=== PATIENT | male | born 1930 | race Caucasian/White ===

== ENCOUNTER 2016-11-22 07:12 | Emergency (ER) | payer MEDICARE, OTHER ==
[~2016-11-22] VITALS: Ht 172.7 cm; Wt 97.5 kg
[2016-11-22 07:38] LABS: BASOPHILS # (AUTO) 0.1 K/uL (0.0-0.2); BASOPHILS % (AUTO) 1.3 % (0.0-2.0); EOSINOPHILS # (AUTO) 0.3 K/uL (0.0-0.7); EOSINOPHILS % (AUTO) 4.4 % (0.0-7.0); HEMATOCRIT 42.6 % (40.0-50.0); HEMOGLOBIN 13.6 g/dL (14.0-18.0); LYMPHOCYTES # (AUTO) 1.5 K/uL (0.8-4.8); LYMPHOCYTES % (AUTO) 24.2 % (20.5-51.5); MEAN CORPUSCULAR HEMOGLOBIN 28.2 uug (27.0-31.0); MEAN CORPUSCULAR HGB CONC 32 g/dL (32.0-37.0); MEAN CORPUSCULAR VOLUME 88.4 fL (82.0-92.0); MONOCYTES # (AUTO) 0.5 K/uL (0.1-1.30); MONOCYTES % (AUTO) 7.9 % (0.0-11.0); NEUTROPHILS % (AUTO) 62.2 % (38.5-71.5); PLATELET COUNT (AUTO) 125 K/uL (150-450); RED BLOOD CELL COUNT(AUTO) 4.82 MIL/uL (4.70-6.10); WHITE BLOOD COUNT (AUTO) 6.4 K/uL (4.0-11.2)
[2016-11-22 07:42] LABS: CALCIUM 8.1 mg/dL (8.5-10.1); CREATININE 0.8 mg/dL (0.6-1.3)
--- NOTE | 2016-11-22 07:44 | NUR ---
PT IS IN ROOM #1B. DR KING EVALUATED THE PT.
[2016-11-22] MEDS ORDERED: ASPIRIN 81 MG TAB.CHEW PO ONE (07:45)
[2016-11-22 07:48] LABS: ALBUMIN 3.3 g/dL (3.4-5.0); BILIRUBIN,TOTAL 0.5 mg/dL (0.2-1.0)
[2016-11-22] MEDS ORDERED: VITAMIN E PO (07:52)
[2016-11-22] MEDS ORDERED: MULT-1169 PO (07:52)
[2016-11-22] MEDS ORDERED: LISI-607 PO (07:52)
[2016-11-22] MEDS ORDERED: ATOR80TA PO (07:52)
[2016-11-22] MEDS ORDERED: ASCO500C16 PO (07:52)
[2016-11-22] MEDS ORDERED: ASPI81TA31 PO (07:52)
[2016-11-22] MEDS ORDERED: NIFE10CA2 PO (07:52)
[2016-11-22] MEDS ORDERED: ASPIRIN 81 MG TAB.CHEW ONE (07:54)
[2016-11-22 08:16] LABS: NEUTROPHILS % (MANUAL) 58 % (42-75)
[2016-11-22 08:17] LABS: BAND % (MANUAL) 5 % (0-10); EOSINOPHILS % (MANUAL) 2 % (0-8); LYMPHOCYTES % (MANUAL) 27 % (20-40); MONOCYTES % (MANUAL) 3 % (2-10); PLATELET ESTIMATE DECREASED; REACTIVE LYMPHOCYTES 5 % (0-0)
--- NOTE | 2016-11-22 11:03 | NUR ---
PT WAS D/C TO HOME. D/C INSTRUCTIONS GIVEN TO THE PT BY DR KING.
[2016-11-22 11:06] VITALS: BP 145/76
[2016-11-22 11:27] LABS: CREATINE KINASE MB 1.1 ng/mL (0-5.0)
== END 2016-11-22 11:07 | disposition home or self-care (01) ==
LOC: ER 07:12
DX: R07.9 Chest pain, unspecified (principal); R00.2 Palpitations; Z88.6 Allergy status to analgesic agent; Z85.72 Personal history of non-Hodgkin lymphomas; Z79.82 Long term (current) use of aspirin
CPT/HCPCS: 36415; 71010; 80053; 82550; 82553; 83880; 84484 ×2; 85025; 85610; 93005; 99285; A4663; J7030; 70030-TC

== ENCOUNTER 2020-01-27 18:00 | Emergency (ER) | payer MEDICARE, OTHER ==
[~2020-01-27] VITALS: Ht 182.9 cm; Wt 104.3 kg
[~2020-01-27 18:00] MED LIST: ASCO500C16 PO; ASPI81TA31 PO; ATOR80TA PO; LISI-607 PO; MULT-1169 PO; NIFE10CA2 PO; VITAMIN E PO
[2020-01-27] MEDS ORDERED: SPIR25TA6 PO (18:17)
[2020-01-27] MEDS ORDERED: FAMO20TA8 PO (18:17)
[2020-01-27] MEDS ORDERED: ATOR20TA PO (18:17)
[2020-01-27] MEDS ORDERED: APIX5TAB PO (18:17)
[2020-01-27] MEDS ORDERED: CYAN-51 PO (18:17)
[2020-01-27 18:24] LABS: BASOPHILS % (AUTO) 0.2 % (0.0-2.0); EOSINOPHILS % (AUTO) 0.1 % (0.0-7.0); HEMATOCRIT 42.5 % (36.7-47.1); HEMOGLOBIN 13.9 g/dL (12.5-16.3); LYMPHOCYTES % (AUTO) 9.7 % (20.5-51.5); MEAN CORPUSCULAR HGB CONC 33 g/dL (32.5-36.3); MEAN CORPUSCULAR VOLUME 100.9 fL (73.0-96.2); MONOCYTES # (AUTO) 0.5 K/uL (2.0-10.0); MONOCYTES % (AUTO) 5.4 % (0.0-11.0); NEUTROPHILS # (AUTO) 8.3 K/uL (1.8-8.9); NEUTROPHILS % (AUTO) 84.6 % (38.5-71.5); PLATELET COUNT (AUTO) 252 K/uL (152-348); RED BLOOD CELL COUNT(AUTO) 4.22 MIL/uL (4.06-5.63); WHITE BLOOD COUNT (AUTO) 9.8 K/uL (3.6-10.2)
[2020-01-27 18:28] LABS: CREATININE 1.2 mg/dL (0.6-1.3); POTASSIUM 4.4 mmol/L (3.5-5.1)
--- NOTE | 2020-01-27 18:29 | NUR ---
BIB [facility] for c/o fall and has pain in lower back s/p ffall. A/Ox4. Speech is clear, speaks in complete sentences. No acute neuro deficits. Patient denies any LOC, nausea, dizziness, or vomiting. Respiratory even and unlabored no cough, or sob. Patient in bed at lowest position, sr upx2, call light within reach. Fall precautions implemented per protocol.
[2020-01-27 18:33] LABS: BILIRUBIN,DIRECT 1.2 mg/dL (0.0-0.2); BILIRUBIN,TOTAL 1.7 mg/dL (0.2-1.0)
--- NOTE | 2020-01-27 19:00 | NUR ---
RECEIVED REPORT FROM RAVINDRA DE LEON AA/OX4. ABLE TO SPEAK IN COMPLETE SENTENCES. NO S/S OF ACUTE NEURO DEFICITS. RESPIRATIONS EVEN AND UNLABORED DENIES PAIN AT THIS TIME DENIES N/V/D SR UP FOR SAFETY. BED LOCKED, LOWEST POSITION. INSTRUCTED PT TO CALL NURSE FOR ASSISTANCE MONITORED ACCORDINGLY
--- NOTE | 2020-01-27 19:02 | NUR ---
Report given to RAVINDRA Benito.
--- NOTE | 2020-01-27 19:08 | NUR ---
PT OUT OF ER FOR CT
--- NOTE | 2020-01-27 19:38 | NUR ---
PT BACK FROM CT
[2020-01-27] MEDS ORDERED: TRAMADOL HCL 50 MG TABLET ONE (20:07)
[2020-01-27] MEDS ORDERED: TRAMADOL HCL 50 MG TABLET PO ONE (20:15)
--- NOTE | 2020-01-27 20:15 | NUR ---
CALLED CAREGIVER OTONIEL. REPORT GIVEN
--- NOTE | 2020-01-27 20:50 | NUR ---
er staff member assisted pt to car caregiver brenda drove pt home
--- NOTE | 2020-01-27 20:50 | NUR ---
Patient discharged to home in stable condition. Written and verbal after care instructions given. Patient verbalizes understanding of instructions. Stressed follow up or return to ER for worsening s/s. AA/Ox4. 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
[2020-01-28 00:51] VITALS: BP 145/62
== END 2020-01-27 20:50 | disposition home or self-care (01) ==
LOC: ER 18:03
DX: S30.0XXA Contusion of lower back and pelvis, initial encounter (principal); W01.0XXA Fall on same level from slipping, tripping and stumbling without subsequent striking against object, initial encounter; Y93.9 Activity, unspecified; Y92.9 Unspecified place or not applicable; I48.91 Unspecified atrial fibrillation; E11.65 Type 2 diabetes mellitus with hyperglycemia; Z85.72 Personal history of non-Hodgkin lymphomas; Z79.82 Long term (current) use of aspirin; Z79.899 Other long term (current) drug therapy; R94.31 Abnormal electrocardiogram [ECG] [EKG]; I62.03 Nontraumatic chronic subdural hemorrhage
CPT/HCPCS: 36415; 70030-TC; 70450; 72125; 72131; 85025; 93005; A4663